=== PATIENT | male | born 1945 | race Caucasian/White ===

== ENCOUNTER 2016-12-31 12:45 | Day surgery (SDC) | payer MEDICARE, BC ==
[2016-12-29 11:34] LABS: BASOPHILS 1.3 %; BASOPHILS ABSOLUTE 0.05 10/3/uL (0.0-0.16); EOSINOPHILS 5.9 %; EOSINOPHILS ABSOLUTE 0.23 10/3/uL (0.0-0.53); HEMATOCRIT 44.5 % (40.0-51.0); HEMOGLOBIN 15.5 g/dL (13.6-17.8); LYMPHOCYTES 23.2 %; LYMPHOCYTES ABSOLUTE 0.91 10/3/uL (0.67-4.30); MEAN CORPUS HGB CONC 34.8 g/dL (32.0-36.0); MEAN CORPUSCULAR HEMOGLOB 33.9 pg (26.0-34.0); MEAN CORPUSCULAR VOLUME 97.4 fL (80-100); MEAN PLATELET VOLUME 10.4 fL (9.2-13.0); MONOCYTES 12.2 %; MONOCYTES ABSOLUTE 0.48 10/3/uL (0.21-1.20); NEUTROPHILS 57.4 %; NEUTROPHILS ABSOLUTE 2.25 10/3/uL (2.02-8.40); PLATELET COUNT 220 10/3/uL (150-400); RED CELL COUNT 4.57 10/6/uL (4.7-6.1); WHITE BLOOD CELLS 3.9 10/3/uL (4.5-10.5)
[2016-12-29 11:36] LABS: MANUAL DIFF NO %
[2016-12-29 11:43] LABS: BUN (BLOOD UREA NITROGEN) 13 MG/DL (6-23); CALCIUM, SERUM 9.2 MG/DL (8.5-10.4); CHLORIDE, SERUM 103 MMOL/L (96-112); CO2 (CARBON DIOXIDE) 32 MMOL/L (24-34); CREATININE 0.92 MG/DL (0.70-1.30); GFR AFRICAN AMERICAN 98 ML/MIN (>=60); GFR NON AFRICAN AMERICAN 85 ML/MIN (>=60); POTASSIUM, SERUM 4.1 MMOL/L (3.5-5.3); SODIUM, SERUM 142 MMOL/L (135-148)
[2016-12-29 11:44] LABS: PARTIAL THROMBO TIME 27.5 SEC (22.5-37.2); PROTIME (NOT ORD) 13.3 SEC (12.0-14.5)
[2016-12-29 11:45] LABS: GLUCOSE, SERUM 100 MG/DL (60-99)
--- NOTE | ~2016-12-31 | OP ---
Record Of Operation [facility] [address] [place]. [address] NAME: CHAIM PEREZ : 49 STATUS : [facility]#: [id number] AGE: 71 ADM/REG DATE : 12/31/16 MR#: [id number] REPORT SERV DATE: 12/31/16 DICTATED BY: JEANA BERGER DATE: 12/31/16 REPORT STATUS : Draft TRANSCRIBED BY: MODCorinna DATE: 12/31/16 DATE OF PROCEDURE: 12/31/2016 PREOPERATIVE DIAGNOSIS: Elevated PSA. POSTOPERATIVE DIAGNOSIS: Elevated PSA. PROCEDURE PERFORMED: Transrectal ultrasound-guided biopsy of the prostate. SURGEON: Jeana Berger M.D. ANESTHESIA: MAC. HISTORY: This is a 71-year-old white male, who has had an elevated PSA in the neighborhood of 7. He has a benign feeling prostate on rectal exam. We are planning transrectal ultrasound-guided biopsies of the prostate. Risks of infection, bleeding, failure, need for further surgery have been discussed. PROCEDURE IN DETAIL: He was taken to the operating room and he was placed in a lateral position on the stretcher bed. He underwent MAC. A brief digital rectal exam revealed a palpably benign 1+ enlarged prostate. The transrectal ultrasound probe was gently introduced per rectum and the prostate was imaged ultrasonographically. Visibility was excellent. There were a few scattered intraprostatic calcifications. There were some vague hypoechoic areas laterally bilaterally. The prostate measured approximately 54 mL in volume. We took 12 sextant biopsies, two each from the base mid gland and apical regions bilaterally. He tolerated this quite well when the biopsies had been obtained, the ultrasound probe was withdrawn per rectum and a Gelfoam pledget was inserted per rectum. The patient tolerated this procedure very well. There were no complications. He was taken to recovery in stable condition. CHARO/ONESIMO Jeana Berger M.D. / [id number] CC: Sindhu Haynse M.D.
[~2016-12-31 12:45] MED LIST: ALLEGRA180 PO; ALTA5 PO; ALTACE10 MG PO; ANDROGEL1.25 GM TOP; DOSTINEX PO; HYGROTON 25 MG25 MG PO; LIPITOR20 PO; MULTIPLE VIT PO; POT GLUCONAT2.5 MEQ PO; SUPER B COMP PO; TESTIM1 % TD; VITAMIN D1000 UNI1 PO
== END 2016-12-31 17:36 | disposition home or self-care (01) ==
LOC: SDC 12:45
PROVIDERS: Urology
PROC: 0VB00ZX Excision of Prostate, Open Approach, Diagnostic (ICD-10-PCS; principal; 2016-12-31 13:45)
DX: R97.20 Elevated prostate specific antigen [PSA] (principal); I10 Essential (primary) hypertension; K21.9 Gastro-esophageal reflux disease without esophagitis; Z98.890 Other specified postprocedural states
CPT/HCPCS: 76872; 76942; 80048; 85025; 85610; 85730; 88305; 93005; J3010